=== PATIENT | female | born 1955 | race Caucasian/White ===

== ENCOUNTER → 2018-11-27 | Outpatient (CLI) | payer BC ==
--- NOTE | 2018-11-27 13:23 | RADIOLOGY IMAGING REPORT ---
[place] [facility] [place] NAME: Veda Maradiaga : 1955 MR: [id number] V: [id number] EXAM DATE: ORDERING PHYSICIAN: EMY RAMIREZ TECHNOLOGIST: Location: [facility] [place] Patient: Veda Maradiaga : 1955 Visit/Account:[id number] Date of Sevice: 11/27/2018 Exam type: CHEST PA LAT History: Shortness of breath, 40 year smoker Comparison: None. Findings: There is marked hyperinflation of the lung zazueta. Coarse linear stranding in the lung bases may be secondary to scarring versus atelectasis. There is central peribronchial thickening bilaterally. No evidence of lobar infiltrates pleural effusions or pulmonary edema. The cardiac silhouette is dipak l in size. There are moderate spondylotic changes of the thoracic spine IMPRESSION: 1. Hyperinflation of the lung zazueta Coarse linear stranding in the lung bases consistent with scarring versus atelectasis Central peribronchial thickening bilaterally Report Dictated By: Clementine Barnes MD at 11/27/2018 1:15 PM Report E-Signed By: Clementine Barnes MD at 11/27/2018 1:16 PM WSN:[email or web address]
== END ==
LOC: RAD 11:43
PROVIDERS: ATTEND Nurse Practitioner Family
DX: R91.8 Other nonspecific abnormal finding of lung field (principal)
CPT/HCPCS: 71046